=== PATIENT | male | born 1960 | race Caucasian/White ===

== ENCOUNTER 2020-03-30 20:16 | Emergency (ER) | payer BC, OTHER ==
[~2020-03-30] VITALS: Ht 182.9 cm; Wt 128.5 kg
[2020-03-30 21:59] LABS: BASO # 0.1 10^3/uL (0.0-0.2); BASO % 0.6 % (0.0-1.0); EOS # 0.2 10^3/uL (0.0-0.5); EOS % 2.1 % (0.0-3.0); HEMATOCRIT 44.9 % (42.0-52.0); HEMOGLOBIN 14.6 g/dl (13.5-17.5); LYMPH # 1.3 10^3/uL (1.5-5.0); LYMPH % 12.5 % (24.0-44.0); MEAN CORPUSCULAR HEMOGLOBIN 30.5 pg (27.0-33.0); MEAN CORPUSCULAR HGB CONC 32.5 g/dl (32.0-36.5); MEAN CORPUSCULAR VOLUME 93.7 fl (80.0-96.0); MONO # 0.9 10^3/uL (0.0-0.8); MONO % 8.3 % (0.0-5.0); NEUTROPHILS # 7.9 10^3/uL (1.5-8.5); NEUTROPHILS % 75.8 % (36.0-66.0); PLATELET COUNT, AUTOMATED 192 10^3/uL (150-450); RED BLOOD COUNT 4.79 10^6/uL (4.30-6.10); WHITE BLOOD COUNT 10.4 10^3/uL (4.0-10.0)
[2020-03-30 22:11] LABS: INR 1.06
[2020-03-30 22:18] LABS: HEMOGLOBIN A1c 6.5 %
[2020-03-30 22:22] LABS: ALBUMIN 3.3 GM/DL (3.2-5.2); ALT/SGPT 22 U/L (12-78); BILIRUBIN,DIRECT 0.1 MG/DL (0.0-0.2); BILIRUBIN,TOTAL 0.4 MG/DL (0.2-1.0); BLOOD UREA NITROGEN 24 MG/DL (7-18); CALCIUM LEVEL 8.4 MG/DL (8.8-10.2); CARBON DIOXIDE LEVEL 26 MEQ/L (21-32); CHLORIDE LEVEL 106 MEQ/L (98-107); CREATININE FOR GFR 1.07 MG/DL (0.70-1.30); GLOMERULAR FILTRATION RATE > 60.0 (>49); GLUCOSE, FASTING 94 MG/DL (70-100); LIPASE 80 U/L (73-393); POTASSIUM SERUM 4.1 MEQ/L (3.5-5.1); SODIUM LEVEL 140 MEQ/L (136-145); TOTAL PROTEIN 7.1 GM/DL (6.4-8.2)
[2020-03-30] MEDS ORDERED: KEFL500C17 PO (22:43)
[2020-03-30] MEDS ORDERED: CEPHALEXIN 500 MG CAP PO ONE (22:45)
--- NOTE | 2020-03-30 22:45 | REPVR ---
PROCEDURE INFORMATION: Exam: XR Chest, 2 Views Exam date and time: 03/30/2020 10:38 PM Age: 59 years old Clinical indication: Other: Abdominal pain TECHNIQUE: Imaging protocol: XR of the chest Views: 2 views. COMPARISON: No relevant prior studies available. FINDINGS: Tubes, catheters and devices: A surgical screw overlies the left shoulder. Lungs: Unremarkable. No consolidation. Pleural space: Unremarkable. No pleural effusion. No pneumothorax. Heart/Mediastinum: Unremarkable. No cardiomegaly. Bones/joints: Degenerative changes involve the spine. IMPRESSION: No evidence for acute pulmonary disease. Electronically signed by: Marcin Ryan On 03/30/2020 22:45:39 PM
[2020-03-30 23:09] VITALS: BP 138/71
--- NOTE | 2020-03-31 07:39 | ECGEPIP ---
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
== END 2020-03-30 23:11 | disposition home or self-care (01) ==
LOC: M ED 20:16
DX: I73.9 Peripheral vascular disease, unspecified (principal); L02.415 Cutaneous abscess of right lower limb; L02.416 Cutaneous abscess of left lower limb

== ENCOUNTER → 2020-06-06 | Outpatient (CLI) | payer OTHER ==
[~2020-06-06] MED LIST: KEFL500C17 PO
--- NOTE | 2020-06-06 14:14 | REP ---
INDICATION: ULCER RT LEG, VENOUS HTN. COMPARISON: None. TECHNIQUE: Right lower extremity duplex venous ultrasound and reflux evaluation. FINDINGS: The deep veins are anechoic and fully compressible from the groin to the distal femoral vein in the right lower extremity. There is a short segment of occlusive thrombosis in the popliteal vein however consistent with deep vein thrombosis. Reflux sonography: There is a collateral without reflux seen at the greater saphenous vein at the knee. No deep system or superficial system reflux was observed or elicited in the right lower extremity. The greater saphenous vein measures 6.1 mm in AP dimension proximally, 6.4 mm at mid thigh, and 3.9 mm at the knee. IMPRESSION: The study is positive for short segment of occlusive deep vein thrombosis in the popliteal vein on the right. No deep or superficial system reflux is observed.. <Electronically signed by Kwadwo Ocampo > 06/06/20 [id number]
--- NOTE | 2020-06-07 09:13 | REP ---
INDICATION: ULCER RT LEG, VENOUS HTN. COMPARISON: None TECHNIQUE: Real time prater scale and color Doppler evaluation of the left lower extremity arterial vasculature using linear high frequency transducer. FINDINGS: The ankle to brachial index could not be obtained. Color doppler interrogation demonstrates mild to moderate amounts of mixed partially calcified atheromatous plaquing most notably involving the popliteal artery. No focal areas of stenosis or occlusion are identified. Doppler interrogation demonstrates triphasic wave patterns from the common femoral artery to the proximal superficial femoral artery followed by monophasic wave patterns from the mid superficial femoral artery through the remainder of the lower extremity. PSV(cm/sec) Common femoral artery: 119.4 cm/s Profunda femoris artery: 83.5 cm/s Proximal superficial femoral artery: 84.2 cm/s Mid superficial femoral artery: 73.7 cm/s Distal superficial femoral artery: 70.1 cm/s Popliteal artery: 86.1 cm/s Proximal RITA: 60.5 cm/s Tibioperoneal trunk: 36.9 cm/s Proximal MANAGER CORPORATE RESPONSIBILITY: 65.2 cm/s Distal MANAGER CORPORATE RESPONSIBILITY: 20.2 cm/s Distal RITA: 38.2 cm/s IMPRESSION: Atheromatous plaquing without evidence for stenosis or occlusion. Primarily monophasic wave patterns noted. <Electronically signed by Bairon Staples > 06/07/20 [id number]
== END ==
LOC: M RAD 12:08
PROVIDERS: ATTEND Surgery
DX: I87.311 Chronic venous hypertension (idiopathic) with ulcer of right lower extremity (principal); L97.812 Non-pressure chronic ulcer of other part of right lower leg with fat layer exposed

== ENCOUNTER → 2020-06-07 | Outpatient (REF) | payer OTHER | LOC: M SFHCPLAZ 11:03 | PROVIDERS: ATTEND Family Medicine | DX: Z00.00 Encounter for general adult medical examination without abnormal findings (principal); R73.03 Prediabetes ==

== ENCOUNTER → 2020-08-02 | Outpatient (POV) | payer OTHER ==
--- NOTE | 2020-08-05 11:45 | IRCOV ---
[facility] IR Consult Office Visit IR Consult Office Visit DATE: Aug 02, 2020 Patient agreed to this telephone consultation. I spent 30 minutes reviewing patients records, imaging and talking to the patient. REASON FOR CONSULTATION/CHIEF COMPLAINT: Non healing right lower extremity wound. HISTORY OF PRESENT ILLNESS: 59 year old male reports a 2.5 cm ulceration on the last posterior right calf which is present for 5 months. This is associated with pain and limb swelling. He was recently diagnosed with right popliteal vein thrombus without iliofemoral extension. He denies increased swelling, pain or redness of the calf. He is on Eliquis. 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 He denies intermittent claudication, rest pain with limb elevation, skin color change, prior gangrene, amputations, chest pain, shortness of breath, orthopnea or PND. He reports wearing compression stocking, he is on his feet all day. No CAD, HTN, DC or CVE. ALLERGIES: Please see below. HOME MEDICATIONS: Please see below. PAST MEDICAL HISTORY: right pop DVT right pop arterial thrombosis PAST SURGICAL HISTORY: Popliteal artery thrombolysis FAMILY HISTORY: non contributory. SOCIAL HISTORY: non smoker. denies alcohol or drugs. REVIEW OF SYSTEMS: Otherwise. PHYSICAL EXAMINATION: no video on patient side. LABORATORY DATA: non recent. Imaging: I personally reviewed the arterial US and venous reflux study of the lower extremity, performed in June 2020. The right SFA is patent with areas of atherosclerosis without occlusion or significant stenosis. The popliteal artery is calcified but patent and AT And PT are patent to the foot. The right GSV fails to show reflux. There is a right popliteal DVT without ileo femoral extension. ASSESSMENT/PLAN: 59 year old male with history of arterial and venous disease of the right lower extremity presents with non healing venous ulcer. He does not report any symptoms indicating arterial ischemia. I would like to follow him up in 3 months with US to evaluate for worsening post thrombotic syndrome and bill ssess for GSV reflux. Thank you for this referral. cc Kaylin DUEÑAS V Allergies Coded Allergies: No Known Allergies (Unverified , 03/30/20) Home Medications Scheduled Cephalexin (Keflex), 500 MG PO Q6H JAMES MCCARTHY MD Aug 05, 2020 11:45
== END ==
LOC: M TMIRPOV 13:17
PROVIDERS: ATTEND Radiology Diagnostic Radiology
DX: I87.2 Venous insufficiency (chronic) (peripheral) (principal); I82.431 Acute embolism and thrombosis of right popliteal vein; L97.229 Non-pressure chronic ulcer of left calf with unspecified severity

== ENCOUNTER → 2020-08-04 | Outpatient (REF) | payer OTHER | LOC: M LAB REF 11:03 | PROVIDERS: ATTEND Physician Assistant | DX: C44.320 Squamous cell carcinoma of skin of unspecified parts of face (principal) ==

== ENCOUNTER → 2020-09-16 | Outpatient (CLI) | payer OTHER ==
[~2020-09-16] MED LIST changes: +ELIQ5TAB PO
== END ==
LOC: M LABSMTC 14:29
PROVIDERS: ATTEND Anesthesiology
DX: Z01.812 Encounter for preprocedural laboratory examination (principal); Z20.822 Contact with and (suspected) exposure to COVID-19

== ENCOUNTER 2020-09-21 07:23 | Day surgery (SDC) | payer OTHER ==
[~2020-09-21] VITALS: Ht 182.9 cm; Wt 125.6 kg
[~2020-09-21 07:23] MED LIST changes: +NS 1,000 ML IV ONE
[2020-09-21] MEDS ORDERED: LIDOCAINE 2% 100MG/5ML SDV (FOR ANES.) As Ordered ONE (09:02)
[2020-09-21] MEDS ORDERED: propofoL 200 MG/20 ML VIAL As Ordered ONE ×3 (09:02→09:29)
--- NOTE | 2020-09-21 09:52 | ROOR ---
Patient Name: Andrew Harmon Procedure Date: 09/21/2020 9:10 AM Date of : 1960 Age: 59 Room: [facility] Gender: Male Note Status: Finalized Procedure: Colonoscopy Indications: Screening for colorectal malignant neoplasm Providers: Camahco Stoddard MD Referring MD: Orlando Rivera MD Requesting Provider: Medicines: Monitored Anesthesia Care Complications: No immediate complications. Procedure: Pre-Anesthesia Assessment: - Prior to the procedure, a History and Physical was performed, and patient medications and allergies were reviewed. The patient is competent. The risks and benefits of the procedure and the sedation options and risks were discussed with the patient. All questions were answered and informed consent was obtained. Patient identification and proposed procedure were verified by the physician, the nurse and the anesthesiologist in the procedure room. Mental Status Examination: alert and oriented. Airway Examination: normal oropharyngeal airway and neck mobility. Respiratory Examination: clear to auscultation. CV Examination: normal. Prophylactic Antibiotics: The patient does not require prophylactic antibiotics. Prior Anticoagulants: The patient has taken Eliquis (apixaban), last dose was 3 days prior to procedure. ASA Grade Assessment: III - A patient with severe systemic disease. After reviewing the risks and benefits, the patient was deemed in satisfactory condition to undergo the procedure. The anesthesia plan was to use monitored anesthesia care (MAC). Immediately prior to administration of medications, the patient was re-assessed for adequacy to receive sedatives. The heart rate, respiratory rate, oxygen saturations, blood pressure, adequacy of pulmonary ventilation, and response to care were monitored throughout the procedure. The physical status of the patient was re-assessed after the procedure. The Colonoscope was introduced through the anus and advanced to the cecum, identified by appendiceal orifice and ileocecal valve. The colonoscopy was performed with difficulty due to the patient's body habitus and the patient's discomfort during the procedure, unable to fully insufflate at the sigmoid, unable to hold air at sigmoid and rectum, coughing, abdominal breathing towards middle and end of the procedure. [Solution]. The quality of the bowel preparation was good. Findings: The perianal and digital rectal examinations were normal. A 4 mm polyp was found in the sigmoid colon. The polyp was sessile. The polyp was removed with a cold snare. Resection and retrieval were complete. Estimated blood loss was minimal. A 7 mm polyp was found in the rectum. The polyp was sessile. The polyp was removed with a cold snare. Resection and retrieval were complete. Estimated blood loss was minimal. The retroflexed view of the distal rectum and anal verge was normal and showed no anal or rectal abnormalities. Impression: - One 4 mm polyp in the sigmoid colon, removed with a cold snare. Resected and retrieved. - One 7 mm polyp in the rectum, removed with a cold snare. Resected and retrieved. - The distal rectum and anal verge are normal on retroflexion view. Recommendation: - Discharge patient to home (ambulatory). - Resume Eliquis (apixaban) at prior dose tomorrow. Refer to primary physician for further adjustment of therapy. - Repeat colonoscopy in 5 years for surveillance based on pathology results. Procedure Code(s): --- Professional --- 82848, Colonoscopy, flexible; with removal of tumor(s), polyp(s), or other lesion(s) by snare technique Diagnosis Code(s): --- Professional --- Z12.11, Encounter for screening for malignant neoplasm of colon K63.5, Polyp of colon K62.1, Rectal polyp CPT copyright 2019 [employer]. All rights reserved. The codes documented in this report are preliminary and upon tree worker review may be revised to meet current compliance requirements. Camacho Stoddard MD Camacho Stoddard MD 09/21/2020 9:52:05 AM Electronically signed by Camacho Stoddard MD Number of Addenda: 0 Note Initiated On: 09/21/2020 9:10 AM Estimated Blood Loss: Estimated blood loss: none.
[2020-09-21 10:16] VITALS: BP 98/55
== END 2020-09-21 10:17 | disposition home or self-care (01) ==
LOC: M OPP 07:23
PROVIDERS: ATTEND Surgery
DX: Z12.11 Encounter for screening for malignant neoplasm of colon (principal); K63.5 Polyp of colon; K62.1 Rectal polyp; Z86.718 Personal history of other venous thrombosis and embolism; Z79.899 Other long term (current) drug therapy

== ENCOUNTER → 2020-09-22 | Outpatient (CLI) | payer OTHER ==
[~2020-09-22] MED LIST changes: -NS 1,000 ML IV ONE
== END ==
LOC: M LABSMTC 11:32
PROVIDERS: ATTEND Anesthesiology
DX: Z01.812 Encounter for preprocedural laboratory examination (principal); Z20.822 Contact with and (suspected) exposure to COVID-19

== ENCOUNTER → 2020-10-07 | Outpatient (CLI) | payer OTHER ==
--- NOTE | 2020-10-07 15:44 | REPPI ---
INDICATION: Z01.818 PRE OP COMPARISON: 03/30/2020 TECHNIQUE: PA and lateral. FINDINGS: The mediastinum and cardiac silhouette are normal. The lung win demonstrate stable chronic changes without acute consolidation, effusion, or pneumothorax. The skeletal structures are intact and normal. IMPRESSION: No acute cardiopulmonary process. <Electronically signed by Bairon Staples > 10/07/20 [id number]
== END ==
LOC: M PLAIMG 15:25
PROVIDERS: ATTEND Student in an Organized Health Care Education/Training Program
DX: Z01.818 Encounter for other preprocedural examination (principal)

== ENCOUNTER → 2020-10-07 | Outpatient (REF) | payer OTHER ==
[2020-10-07 17:09] LABS: BASO # 0.1 10^3/uL (0.0-0.2); BASO % 0.9 % (0.0-1.0); EOS # 0.2 10^3/uL (0.0-0.5); EOS % 2.7 % (0.0-3.0); HEMATOCRIT 44.9 % (42.0-52.0); HEMOGLOBIN 14.2 g/dl (13.5-17.5); LYMPH # 1.5 10^3/uL (1.5-5.0); LYMPH % 19.9 % (24.0-44.0); MEAN CORPUSCULAR HEMOGLOBIN 29.8 pg (27.0-33.0); MEAN CORPUSCULAR HGB CONC 31.6 g/dl (32.0-36.5); MEAN CORPUSCULAR VOLUME 94.1 fl (80.0-96.0); MONO # 0.8 10^3/uL (0.0-0.8); MONO % 10.1 % (2.0-8.0); NEUTROPHILS # 5.1 10^3/uL (1.5-8.5); NEUTROPHILS % 65.4 % (36.0-66.0); PLATELET COUNT, AUTOMATED 244 10^3/uL (150-450); RED BLOOD COUNT 4.77 10^6/uL (4.30-6.10); WHITE BLOOD COUNT 7.7 10^3/uL (4.0-10.0)
[2020-10-07 17:13] LABS: HEMOGLOBIN A1c 6.7 %
[2020-10-07 17:16] LABS: PROTHROMBIN TIME 13.4 SECONDS (12.5-14.3)
[2020-10-07 17:17] LABS: PARTIAL THROMBOPLASTIN TIME 30.5 SECONDS (24.2-38.5)
[2020-10-07 17:23] LABS: BLOOD UREA NITROGEN 25 MG/DL (7-18); CALCIUM LEVEL 8.8 MG/DL (8.8-10.2); CARBON DIOXIDE LEVEL 26 MEQ/L (21-32); CHLORIDE LEVEL 108 MEQ/L (98-107); CHOLESTEROL LEVEL 174 MG/DL (<200); CHOLESTEROL RISK RATIO 4.578 (<5); CREATININE FOR GFR 0.89 MG/DL (0.70-1.30); GLOMERULAR FILTRATION RATE > 60.0 (>49); GLUCOSE, FASTING 99 MG/DL (70-100); HDL CHOLESTEROL 38 MG/DL (>40); LDL CHOLESTEROL 108 MG/DL (<100); NON-HDL-C 136 MG/DL; POTASSIUM SERUM 4.1 MEQ/L (3.5-5.1); SODIUM LEVEL 139 MEQ/L (136-145); TRIGLYCERIDES LEVEL 139 MG/DL (<150)
== END ==
LOC: M SFHCPLAZ 15:17
DX: Z01.812 Encounter for preprocedural laboratory examination (principal)

== ENCOUNTER → 2020-10-27 | Outpatient (CLI) | payer OTHER ==
--- NOTE | 2020-10-27 15:39 | REP ---
INDICATION: DVT, VENOUS HTN COMPARISON: None. TECHNIQUE: Real time compression and duplex Doppler interrogation of the right lower extremity deep venous system is performed. Evaluation for venous reflux is performed. FINDINGS: The right common femoral, superficial femoral and popliteal veins are fully compressible with transducer pressure and demonstrate normal spontaneous and phasic flow, without evidence of deep venous thrombosis.The peroneal and posterior tibial veins are not visualized due to soft tissue edema and body habitus. There is reflux in the right common femoral vein with the bed tipped as well as in the standing position. There is no evidence of an anterior accessory greater saphenous vein. There is reflux in the popliteal vein only in the standing position. There is no reflux in the greater saphenous vein at the saphenofemoral junction which measures 8 mm. There is reflux in the greater saphenous vein at the midthigh level read right felix of 7 seconds and also at the level of the knee with duration of 7 seconds, diameter of both is 7 mm. There is minimal reflux in the lesser saphenous vein only with the bed tipped, diameter is 5 mm. IMPRESSION: No evidence of deep venous thrombosis of the right lower extremity femoral popliteal venous system. Venous reflux as discussed above. <Electronically signed by Giovanny Centeno > 10/27/20 [id number]
== END ==
LOC: M RAD 14:07
PROVIDERS: ATTEND Radiology Diagnostic Radiology
DX: I87.309 Chronic venous hypertension (idiopathic) without complications of unspecified lower extremity (principal)

== ENCOUNTER 2020-11-23 15:22 | Emergency (ER) | payer OTHER ==
[~2020-11-23] VITALS: Ht 182.9 cm; Wt 127.4 kg
[2020-11-23] MEDS ORDERED: METF500T13 (15:38)
--- NOTE | 2020-11-23 17:30 | REP ---
INDICATION: RLE pain r/o DVT. COMPARISON: None. TECHNIQUE: Right {lower extremity duplex venous scanning is performed from the groin to the ankle level. FINDINGS: The deep veins are anechoic and fully compressible from the groin to the popliteal fossa in the right lower extremity. Color flow imaging is homogeneous. Spectral Doppler interrogation demonstrates intact respiratory variation in flow and normal manual augmentation of flow. There is no evidence of deep vein thrombosis above the knee. Right lower extremity calf veins could not be seen due to bandages.. Doppler interrogation of the contralateral common femoral vein shows normal symmetric respiratory phasicity. IMPRESSION: No evidence of DVT in the right lower extremity femoropopliteal veins. <Electronically signed by Kwadwo Ocampo > 11/23/20 [id number]
[2020-11-23 17:39] LABS: BASO % 0.3 % (0.0-1.0); EOS # 0.1 10^3/uL (0.0-0.5); EOS % 0.9 % (0.0-3.0); HEMATOCRIT 42.2 % (42.0-52.0); HEMOGLOBIN 13.6 g/dl (13.5-17.5); LYMPH # 0.9 10^3/uL (1.5-5.0); LYMPH % 8.5 % (24.0-44.0); MEAN CORPUSCULAR HEMOGLOBIN 29.6 pg (27.0-33.0); MEAN CORPUSCULAR HGB CONC 32.2 g/dl (32.0-36.5); MEAN CORPUSCULAR VOLUME 91.9 fl (80.0-96.0); MONO # 0.6 10^3/uL (0.0-0.8); MONO % 5.5 % (2.0-8.0); NEUTROPHILS # 8.9 10^3/uL (1.5-8.5); NEUTROPHILS % 84.1 % (36.0-66.0); PLATELET COUNT, AUTOMATED 233 10^3/uL (150-450); RED BLOOD COUNT 4.59 10^6/uL (4.30-6.10); WHITE BLOOD COUNT 10.6 10^3/uL (4.0-10.0)
[2020-11-23 17:53] LABS: BLOOD UREA NITROGEN 19 MG/DL (7-18); CARBON DIOXIDE LEVEL 30 MEQ/L (21-32); CHLORIDE LEVEL 106 MEQ/L (98-107); CREATININE FOR GFR 1.06 MG/DL (0.70-1.30); GLOMERULAR FILTRATION RATE > 60.0 (>49); GLUCOSE, FASTING 137 MG/DL (70-100); POTASSIUM SERUM 4.2 MEQ/L (3.5-5.1); SODIUM LEVEL 140 MEQ/L (136-145)
[2020-11-23 17:54] LABS: CALCIUM LEVEL 8.3 MG/DL (8.8-10.2)
[2020-11-23 18:16] LABS: ERYTHROCYTE SEDIMENTATION RATE 69 mm/hr (0-20)
[2020-11-23] MEDS ORDERED: BACT800T5 PO (18:21)
[2020-11-23] MEDS ORDERED: CEPH500C PO (18:21)
[2020-11-23 18:34] VITALS: BP 136/72
== END 2020-11-23 18:36 | disposition home or self-care (01) ==
LOC: M ED 15:22
DX: L03.115 Cellulitis of right lower limb (principal); I73.9 Peripheral vascular disease, unspecified; E11.9 Type 2 diabetes mellitus without complications; Z79.01 Long term (current) use of anticoagulants

== ENCOUNTER → 2020-12-15 | Outpatient (CLI) | payer OTHER ==
[~2020-12-15] MED LIST changes: +BACT800T5 PO; +CEPH500C PO; +LIDOCAINE 1% MDV 20ML VIAL As Ordered ONE; +LIDOCAINE 2% MDV 20ML VIAL As Ordered ONE; +METF500T13 PO; +MIDAZOLAM INJ 2MG/2ML VIAL (J2250 PER 1MG) As Ordered ONE; +NS 1,000 ML IV SCH; +PERCOCET 5MG/325MG TAB PO PRN; +PROMETHAZINE INJ 25 MG/ML VIAL (J2550) As Ordered ONE; +diphenhydrAMINE 50MG/ML VIAL (J1200) As Ordered ONE; +fentaNYL 100 MCG/2 ML INJECTION (J3010) As Ordered ONE
--- NOTE | 2020-12-15 08:32 | IRHP ---
[facility] IR Pre-Procedure H & P General Date of Service: Dec 15, 2020 Procedure: Same Day Surgery Interval History and Physical I have seen the patient and reviewed last H & P performed within 30 days. There is no significant interval change. History of Present Illness Chief Complaint The patient is a 60-year-old male admitted with a reason for visit of Varicose Veins. PRE-PROCEDURE DIAGNOSIS: Varicose veins HEART: Normal rate. LUNGS: Normal breathing at rest. ASA Classification ASA Classification: III-Severe systemic dis. Mallampati Score: II NPO: Yes Problems with prior sedation: No Obstructive Sleep Apnea: No Plan moderate sedation Allergies Coded Allergies: No Known Allergies (Unverified , 09/20/20) Home Medications Scheduled Apixaban (Eliquis), 5 MG PO BID, (Reported) Metformin HCl (Metformin HCl), 500 PO BID, (Reported) Discontinued Medications Cephalexin (Cephalexin), 500 MG PO QID Discontinued Reason: PCP discontinued med Sulfamethoxazole/Trimethoprim (Bactrim Ds Tablet), 1 TAB PO Q12H Discontinued Reason: PCP discontinued med VS, I&O, 24H, Chato Vital Signs/I&O Vital Signs Date Time Temp Pulse Resp B/P (MAP) Pulse Ox O2 Delivery O2 Flow Rate FiO2 12/15/20 07:35 98.0 80 20 97 Room Air JAMES MCCARTHY MD Dec 15, 2020 08:32
[2020-12-15 10:45] VITALS: BP 112/58
--- NOTE | 2020-12-19 12:15 | IRPON ---
IR Postoperative Note Date Of Procedure: Dec 15, 2020 Time Of Procedure: 16:00 IR Postoperative Note IR Endovenous laser treatment for right leg varicose vein. IR Ultrasound of the right leg. IR Tumescent anesthesia under ultrasound guidance. IR Moderate sedation. Clinical information: Right lower extremely nonhealing venous ulcers. Greater saphenous vein reflux greater than 0.5 seconds. Physician: Dr. Paul. Procedure: The patient was advised of the benefits, risks and alternatives of the procedure and informed consent was obtained. The time-out was performed with verification of the patient's name, MRN, site of procedure and type of procedure to be performed. The patient was positioned in the supine position on the table. The site was prepped and draped in the usual sterile fashion. Moderate sedation was performed by the physician including the presence of an independent trained RN who assisted in monitoring the patient's level of consciousness and physiologic status. Following the administration of fentanyl and Versed , the physician spent 90 minutes of continuous face to face time with the patient. Ultrasound of the right lower extremity demonstrates dilated right greater saphenous vein with greater than 0.5 seconds reflux. The access site was identified with ultrasound and anesthetized with lidocaine. The right greater saphenous vein was accessed under ultrasound guidance at the knee, using a micro introducer needle. An 018 cope wire was advanced into the vein. Incision at the access site was made using a scalpel. The needle was removed and an access catheter was advanced over the wire under ultrasound guidance to > 2.5 centimeters from the saphenofemoral junction. The wire was removed and the laser fiber was advanced through the catheter under ultrasound guidance and positioned with the tip located 2.5 cm from the saphenous femoral junction. Tumescent anesthesia was then injected under ultrasound guidance along the entire length of the vein to be treated. Repeat ultrasound of the saphenofemoral junction was used to confirm positioning of the tip of the laser back 2.5 cm from junction. The patient was positioned in Trendelenburg. The laser was then activated and under ultrasound guidance used to laser the Right greater saphenous vein back to the access point. Simultaneous manual compression was applied to the treated vein. Treatment: Wattage: 7. Time: 157 seconds. Pullback rate 1 cm every 7 seconds. Total Energy deposited 1100 joules. Treatment 50 joules per centimeter of vein. The fiber, catheter and sheath were removed, pressure held and hemostasis achieved. A sterile dressing was applied to the site. Compression dressing was then applied to the leg, from ankle to groin. The patient tolerated the procedure well and was returned to the PRU in stable condition. EBL: < 5 ml. Complications: None. Impression: 1. Ultrasound demonstrates dilated right greater saphenous vein with greater than 0.5 seconds reflux. 2. Successful right greater saphenous vein ablation with laser. 3. Compression dressing applied from ankle to groin. Patient to return in 1 week for follow up ultrasound at which time the compression dressing will be switched to stockings. Thank you this referral. Cc JAMES Madden MD Dec 19, 2020 12:14
== END ==
LOC: M IRPRO 07:22
PROVIDERS: ATTEND Radiology Diagnostic Radiology
DX: I83.019 Varicose veins of right lower extremity with ulcer of unspecified site (principal); I87.2 Venous insufficiency (chronic) (peripheral)
CPT/HCPCS: 36478; 76940; 99152; 99153; J1200; J2250; J3010

== ENCOUNTER → 2020-12-22 | Outpatient (CLI) | payer OTHER ==
[~2020-12-22] MED LIST changes: -LIDOCAINE 1% MDV 20ML VIAL As Ordered ONE; -LIDOCAINE 2% MDV 20ML VIAL As Ordered ONE; -MIDAZOLAM INJ 2MG/2ML VIAL (J2250 PER 1MG) As Ordered ONE; -NS 1,000 ML IV SCH; -PERCOCET 5MG/325MG TAB PO PRN; -PROMETHAZINE INJ 25 MG/ML VIAL (J2550) As Ordered ONE; -diphenhydrAMINE 50MG/ML VIAL (J1200) As Ordered ONE; -fentaNYL 100 MCG/2 ML INJECTION (J3010) As Ordered ONE
--- NOTE | 2020-12-22 10:30 | REP ---
INDICATION: S/P EVLT RT, R/O DVT COMPARISON: None. TECHNIQUE: Centeno scale and color Doppler evaluation using linear high frequency transducer. FINDINGS: Ultrasound examination of the right lower extremity deep venous structures from the common femoral vein through the calf/ankle to include the peroneal, and tibial veins demonstrates normal compressibility flow and wave patterns in response to respiration and augmentation. There is no evidence for deep venous thrombosis. Patient is noted to be status post EVLT with thrombus of the greater saphenous vein beginning approximately 1.5 cm from the junction with the common femoral vein and extending distally to the anterior accessory greater saphenous vein. IMPRESSION: No evidence for deep venous thrombosis. <Electronically signed by Bairon Staples > 12/22/20 1020
== END ==
LOC: M RAD 09:41
PROVIDERS: ATTEND Radiology Diagnostic Radiology
DX: I83.90 Asymptomatic varicose veins of unspecified lower extremity (principal); Z86.718 Personal history of other venous thrombosis and embolism

== ENCOUNTER → 2021-01-10 | Outpatient (POV) | payer OTHER ==
[~2021-01-10] VITALS: Ht 182.9 cm; Wt 127.2 kg
[2021-01-10 16:20] VITALS: BP 156/79
--- NOTE | 2021-01-13 12:21 | IRPN ---
[facility] IR Progress Note IR Progress Note DATE: Jan 10, 2021 FOLLOW-UP: Patient is status post right lower extremity EVLT for venous hypertension and nonhealing venous ulcer. Patient reports he is doing great. The bruising has resolved. He denies any right lower extremity pain. He states he is walking and moving around much better without pain or discomfort. He feels the swelling is improved. ON EXAMINATION: Right lower extremity in compression. Right calf nontender. I personally reviewed the follow-up right lower extremity venous ultrasound, performed one week post EVLT. Good treatment response with GSV ablation. No deep vein thrombosis. IMPRESSION: Doing well status post right lower extremity EVLT. No further follow-up scheduled unless initiated by patient and/or referring provider. Continue wound care. Thank you for this referral. Cc Kaylin Gutierrez Allergies Coded Allergies: No Known Allergies (Unverified , 09/20/20) VS,Fishbone, I+O VS, Fishbone, I+O Vital Signs Date Time Temp Pulse Resp B/P (MAP) Pulse Ox O2 Delivery O2 Flow Rate FiO2 01/10/21 16:20 98.4 91 20 156/79 (104) 96 Room Air JAMES MCCARTHY MD Jan 13, 2021 12:21
== END ==
LOC: M IRPOV 16:18
PROVIDERS: ATTEND Radiology Diagnostic Radiology
DX: Z48.812 Encounter for surgical aftercare following surgery on the circulatory system (principal)

== ENCOUNTER → 2021-01-12 | Outpatient (REF) | payer OTHER | LOC: M LAB REF 19:16 | PROVIDERS: ATTEND Dermatology | DX: D48.9 Neoplasm of uncertain behavior, unspecified (principal) ==

== ENCOUNTER → 2021-11-30 | Outpatient (CLI) | payer OTHER | LOC: M RAD 09:03 | PROVIDERS: ATTEND Surgery | DX: L97.812 Non-pressure chronic ulcer of other part of right lower leg with fat layer exposed (principal) ==

== ENCOUNTER → 2022-01-07 | Outpatient (CLI) | payer OTHER | LOC: M LABSMTC 11:16 | PROVIDERS: ATTEND Anesthesiology | DX: Z01.812 Encounter for preprocedural laboratory examination (principal); Z20.822 Contact with and (suspected) exposure to COVID-19 ==

== ENCOUNTER → 2022-01-16 | Outpatient (CLI) | payer OTHER | LOC: M LABSMTC 09:24 | PROVIDERS: ATTEND Anesthesiology | DX: Z01.812 Encounter for preprocedural laboratory examination (principal); Z20.822 Contact with and (suspected) exposure to COVID-19 ==

== ENCOUNTER → 2022-01-18 | Outpatient (CLI) | payer OTHER ==
[~2022-01-18] MED LIST changes: +ISOVUE-300 61% 50ML VIAL As Ordered ONE; +LIDOCAINE 1% MDV 20ML VIAL As Ordered ONE; +MIDAZOLAM INJ 2MG/2ML VIAL (J2250 PER 1MG) As Ordered ONE; +NS 1,000 ML IV SCH; +diphenhydrAMINE 50MG/ML VIAL (J1200) As Ordered ONE; +fentaNYL 100 MCG/2 ML INJECTION As Ordered ONE
[2022-01-18 09:18] LABS: HEMATOCRIT 41.1 % (42.0-52.0); HEMOGLOBIN 13.2 g/dl (13.5-17.5); MEAN CORPUSCULAR HEMOGLOBIN 29.7 pg (27.0-33.0); MEAN CORPUSCULAR HGB CONC 32.1 g/dl (32.0-36.5); MEAN CORPUSCULAR VOLUME 92.4 fl (80.0-96.0); PLATELET COUNT, AUTOMATED 242 10^3/uL (150-450); RED BLOOD COUNT 4.45 10^6/uL (4.30-6.10); WHITE BLOOD COUNT 8.4 10^3/uL (4.0-10.0)
[2022-01-18 09:47] LABS: BLOOD UREA NITROGEN 24 MG/DL (7-18); CALCIUM LEVEL 8.8 MG/DL (8.8-10.2); CARBON DIOXIDE LEVEL 29 MEQ/L (21-32); CHLORIDE LEVEL 105 MEQ/L (98-107); CREATININE FOR GFR 1.04 MG/DL (0.70-1.30); GLOMERULAR FILTRATION RATE > 60.0 (>49); GLUCOSE, FASTING 186 MG/DL (70-100); POTASSIUM SERUM 4.8 MEQ/L (3.5-5.1); SODIUM LEVEL 137 MEQ/L (136-145)
[2022-01-18 16:30] VITALS: BP 148/71
== END ==
LOC: M IRPRO 08:35
PROVIDERS: ATTEND Radiology Diagnostic Radiology
DX: I70.239 Atherosclerosis of native arteries of right leg with ulceration of unspecified site (principal); I70.92 Chronic total occlusion of artery of the extremities
CPT/HCPCS: 36247; 75630; 75774; 80048; 85027; 99152; 99153; C1769; C1887; C1894; J1200; J1644; J2250; J3010; Q9967

== ENCOUNTER → 2022-01-23 | Outpatient (POV) | payer OTHER ==
[~2022-01-23] VITALS: Ht 182.9 cm; Wt 122.7 kg
[~2022-01-23] MED LIST changes: -ISOVUE-300 61% 50ML VIAL As Ordered ONE; -LIDOCAINE 1% MDV 20ML VIAL As Ordered ONE; -MIDAZOLAM INJ 2MG/2ML VIAL (J2250 PER 1MG) As Ordered ONE; -NS 1,000 ML IV SCH; -diphenhydrAMINE 50MG/ML VIAL (J1200) As Ordered ONE; -fentaNYL 100 MCG/2 ML INJECTION As Ordered ONE
[2022-01-23 14:00] VITALS: BP 132/76
== END ==
LOC: M IRPOV 13:37
PROVIDERS: ATTEND Radiology Diagnostic Radiology
DX: Z48.812 Encounter for surgical aftercare following surgery on the circulatory system (principal); I70.92 Chronic total occlusion of artery of the extremities

== ENCOUNTER → 2022-02-09 | Outpatient (REF) | payer OTHER ==
[2022-02-09 16:18] LABS: HEMOGLOBIN A1c 9.3 %
== END ==
LOC: M SFHCWOUN 12:31
PROVIDERS: ATTEND Physician Assistant
DX: I87.311 Chronic venous hypertension (idiopathic) with ulcer of right lower extremity (principal)

== ENCOUNTER 2024-01-27 17:46 | Inpatient (IN) | payer BC, MEDICARE ==
[~2024-01-27] VITALS: Ht 180.3 cm; Wt 122.2 kg
[2024-01-27 18:05] LABS: ABG BASE EXCESS -12.5 (-2.0-2.0); ABG HCO3 17.1 MMOL/L (22.0-26.0); ABG O2 SATURATION 98.7 % (95.0-99.0); ABG PARTIAL PRESSURE CO2 53.3 mmHg (35.0-45.0); ABG PARTIAL PRESSURE O2 157.8 mmHg (75.0-100.0); ABG TOTAL CO2 18.8 MMOL/L (23.0-31.0)
[2024-01-27 18:06] LABS: ABG pH (ARTERIAL) 7.125 UNITS (7.350-7.450)
[2024-01-27] MEDS ORDERED: ISOVUE-370 76% 100ML VIAL As Ordered ONE (18:15)
[2024-01-27] MEDS: methylPREDNISolone 125MG 2ML VIAL IV ONE (18:30)
[2024-01-27 18:33] LABS: BASO % 0.5 % (0.0-1.0); EOS # 0.1 10^3/uL (0.0-0.5); EOS % 1.2 % (0.0-3.0); HEMATOCRIT 46.1 % (42.0-52.0); HEMOGLOBIN 15.1 g/dl (13.5-17.5); LYMPH # 2.2 10^3/uL (1.5-5.0); MEAN CORPUSCULAR HEMOGLOBIN 31.2 pg (27.0-33.0); MEAN CORPUSCULAR HGB CONC 32.8 g/dl (32.0-36.5); MEAN CORPUSCULAR VOLUME 95.2 fl (80.0-96.0); MONO # 0.5 10^3/uL (0.0-0.8); MONO % 8.1 % (2.0-8.0); PLATELET COUNT, AUTOMATED 142 10^3/uL (150-450); RED BLOOD COUNT 4.84 10^6/uL (4.30-6.10); WHITE BLOOD COUNT 5.8 10^3/uL (4.0-10.0)
[2024-01-27 18:51] LABS: CPK CREATINE PHOSPHOKINASE 80 U/L (46-171)
[2024-01-27 18:52] LABS: ALKALINE PHOSPHATASE 82 U/L (46-116); ALT/SGPT 40 U/L (7.0-40); AST/SGOT 26 U/L (<34); BILIRUBIN,DIRECT 0.1 MG/DL (<0.4); BILIRUBIN,TOTAL 0.3 MG/DL (0.3-1.2); BLOOD UREA NITROGEN 19 MG/DL (9-23); CARBON DIOXIDE LEVEL 23 MMOL/L (20-31); CHLORIDE LEVEL 103 MMOL/L (98-107); CK-MB VALUE MASS < 1.0 NG/ML (<3.6); GLOMERULAR FILTRATION RATE > 60.0 (>49); GLUCOSE, FASTING 312 MG/DL (74-106); MB/CK RELATIVE INDEX 1.25 (< OR =4); POTASSIUM SERUM 3.3 MMOL/L (3.5-5.1); SODIUM LEVEL 138 MMOL/L (136-145); TOTAL PROTEIN 7.4 G/DL (5.7-8.2)
[2024-01-27 18:53] LABS: THYROID STIMULATING HORMONE 4.155 uIU/ML (0.55-4.78)
[2024-01-27 18:54] LABS: THYROXINE (T4) 8.3 UG/DL (4.5-10.9)
[2024-01-27 18:59] LABS: INR 1.06; PARTIAL THROMBOPLASTIN TIME 25.8 SECONDS (24.8-34.2); PROTHROMBIN TIME 13.5 SECONDS (12.5-14.5)
[2024-01-27] MEDS: NS 1,000 ML IV ONE (19:35)
[2024-01-27 19:37] LABS: ABG BASE EXCESS 1.1 (-2.0-2.0); ABG HCO3 26.8 MMOL/L (22.0-26.0); ABG PARTIAL PRESSURE CO2 46.2 mmHg (35.0-45.0); ABG STANDARD HCO3 25.3 MMOL/L. (22.0-26.0); ABG TOTAL CO2 28.2 MMOL/L (23.0-31.0); ABG pH (ARTERIAL) 7.381 UNITS (7.350-7.450)
[2024-01-27] MEDS ORDERED: NS 1,000 ML IV SCH (19:45)
[2024-01-27] MEDS: NS 500 ML IV ONE (19:45)
[2024-01-27 19:59] LABS: CK-MB VALUE MASS 2.1 NG/ML (<3.6)
[2024-01-27 20:07] LABS: MB/CK RELATIVE INDEX 2.18 (< OR =4)
[2024-01-27] MEDS ORDERED: HOME MED LIST COMPLETE! XX SCH (20:50)
[2024-01-27] MEDS: cefTRIAXone SOD 2 GM in D5W MINI-BAG PLUS 50 ML IV ONE (21:10)
[2024-01-27 21:36] LABS: PROCALCITONIN 0.13 ng/ml
[2024-01-27 22:07] LABS: CK-MB VALUE MASS 3.4 NG/ML (<3.6)
[2024-01-27 22:09] LABS: MB/CK RELATIVE INDEX 3.33 (< OR =4)
[2024-01-27] MEDS ORDERED: ACETAMINOPHEN TAB 650MG DOSE (2X325MG) PO PRN (23:20)
[2024-01-27] MEDS ORDERED: ALBUTEROL SULFATE 2.5MG/0.5ML INH NEB SOLN NEB PRN (23:25)
[2024-01-27] MEDS ORDERED: GLUCAGON INJ 1MG VIAL SC PRN (23:25)
[2024-01-27] MEDS ORDERED: GLUCOSE 4 GM CHEW PO PRN (23:25)
[2024-01-27] MEDS ORDERED: DEXTROSE 50% 50ML SYRINGE IV PRN (23:25)
[2024-01-28] VITALS (19 sets, daily range): BP systolic 117–148; BP diastolic 56–93; TEMP 97.5–98.2; O2SAT 70–100
[2024-01-28] MEDS: AZITHROMYCIN INJ 500 MG, VIAL MATE ADAPTER 1 EACH in NS 250 ML IV SCH (00:46)
[2024-01-28] MEDS: ENOXAPARIN 40MG/0.4ML SYRINGE (J1650 PER 10MG) SC SCH (00:46)
[2024-01-28] MEDS: ASPIRIN 325 MG TAB PO ONE (00:47)
[2024-01-28] MEDS: POTASSIUM CHLORIDE 10MEQ SR TABLET PO ONE (00:47)
[2024-01-28] MEDS: INSULIN LISPRO (NovoLOG) PER UNIT SC SCH (00:48)
[2024-01-28] MEDS: NS 2,170 ML in IV 1 EA IV ONE (00:48)
[2024-01-28] MEDS: IPRATROPIUM 0.5MG/ALBUTEROL 2.5MG INH SOL UD 3ML (DUONEB) NEB SCH (01:40)
[2024-01-28 01:43] LABS: MAGNESIUM LEVEL 1.8 MG/DL (1.8-2.4)
[2024-01-28] MEDS: methylPREDNISolone 40MG 1ML VIAL IV SCH (02:50)
[2024-01-28 07:26] LABS: HEMATOCRIT 41.1 % (42.0-52.0); HEMOGLOBIN 13.8 g/dl (13.5-17.5); MEAN CORPUSCULAR HEMOGLOBIN 31.5 pg (27.0-33.0); MEAN CORPUSCULAR HGB CONC 33.6 g/dl (32.0-36.5); MEAN CORPUSCULAR VOLUME 93.8 fl (80.0-96.0); PLATELET COUNT, AUTOMATED 125 10^3/uL (150-450); RED BLOOD COUNT 4.38 10^6/uL (4.30-6.10); WHITE BLOOD COUNT 4.6 10^3/uL (4.0-10.0)
[2024-01-28 08:07] LABS: PROCALCITONIN 0.61 ng/ml
[2024-01-28 08:12] LABS: ALBUMIN 2.8 G/DL (3.2-5.2); ALKALINE PHOSPHATASE 70 U/L (46-116); ALT/SGPT 35 U/L (7.0-40); AST/SGOT 24 U/L (<34); BILIRUBIN,TOTAL 0.3 MG/DL (0.3-1.2); BLOOD UREA NITROGEN 16 MG/DL (9-23); CALCIUM LEVEL 6.8 MG/DL (8.3-10.6); CARBON DIOXIDE LEVEL 26 MMOL/L (20-31); CHLORIDE LEVEL 108 MMOL/L (98-107); CREATININE FOR GFR 0.83 MG/DL (0.70-1.30); GLOMERULAR FILTRATION RATE > 60.0 (>49); GLUCOSE, FASTING 265 MG/DL (74-106); MAGNESIUM LEVEL 1.7 MG/DL (1.8-2.4); POTASSIUM SERUM 4.5 MMOL/L (3.5-5.1); SODIUM LEVEL 141 MMOL/L (136-145); TOTAL PROTEIN 6.7 G/DL (5.7-8.2)
[2024-01-28] MEDS: ASPIRIN 81MG ENTERIC TABLET PO SCH (09:19)
[2024-01-28] MEDS: PANTOPRAZOLE 40MG TAB (PROTONIX) PO SCH (09:19)
[2024-01-28] MEDS: LEVEMIR (INSULIN DETEMIR) 1 UNITS/0.01ML SC SCH (09:19)
[2024-01-28] MEDS: FORMOTEROL FUMARATE 20 MCG/2 ML INHALATION SOLUTION (PERFOROMIST) INH SCH (11:35)
[2024-01-28] MEDS: GLYCOPYRROLATE INJ 0.2 MG/ML 2 ML VIAL NEB SCH (11:35)
[2024-01-28 13:12] LABS: VENOUS BASE EXCESS -7.9 (-2.0-2.0); VENOUS HCO3 19.4 MMOL/L (23.0-27.0); VENOUS O2 SATURATION 95.7 % (60.0-80.0); VENOUS PARTIAL PRESSURE CO2 46.5 mmHg (38.0-50.0); VENOUS PH 7.239 UNITS (7.330-7.430); VENOUS STANDARD HCO3 18.1 MMOL/L; VENOUS TOTAL CO2 20.9 MMOL/L (24.0-28.0)
[2024-01-28] MEDS: MAG SULF 1GM/100ML (MAG RUN) 1 GM in IV 1 EA IV ONE (14:16)
[2024-01-28] MEDS: REMDESIVIR 200 MG in NS 250 ML IV ONE (17:44)
[2024-01-28] MEDS: cefTRIAXone SOD 1 GM in D5W MINI-BAG PLUS 50 ML IV SCH (21:40)
[2024-01-29] VITALS (43 sets, daily range): BP systolic 121–165; BP diastolic 58–94; TEMP 96.4–98.4; O2SAT 92–98
[2024-01-29 08:05] LABS: HEMATOCRIT 42.5 % (42.0-52.0); HEMOGLOBIN 14.1 g/dl (13.5-17.5); MEAN CORPUSCULAR HEMOGLOBIN 31.5 pg (27.0-33.0); MEAN CORPUSCULAR HGB CONC 33.2 g/dl (32.0-36.5); MEAN CORPUSCULAR VOLUME 95.1 fl (80.0-96.0); PLATELET COUNT, AUTOMATED 124 10^3/uL (150-450); RED BLOOD COUNT 4.47 10^6/uL (4.30-6.10); WHITE BLOOD COUNT 13.9 10^3/uL (4.0-10.0)
[2024-01-29 08:36] LABS: BLOOD UREA NITROGEN 20 MG/DL (9-23); CALCIUM LEVEL 7.3 MG/DL (8.3-10.6); CARBON DIOXIDE LEVEL 28 MMOL/L (20-31); CHLORIDE LEVEL 108 MMOL/L (98-107); CREATININE FOR GFR 0.85 MG/DL (0.70-1.30); GLOMERULAR FILTRATION RATE > 60.0 (>49); GLUCOSE, FASTING 243 MG/DL (74-106); POTASSIUM SERUM 4.2 MMOL/L (3.5-5.1); SODIUM LEVEL 139 MMOL/L (136-145)
[2024-01-29] MEDS: PANTOPRAZOLE 40MG VIAL IV SCH (09:15)
[2024-01-29] MEDS ORDERED: LIDOCAINE 1% MDV 20ML VIAL As Ordered ONE (13:41)
[2024-01-29] MEDS: REMDESIVIR 100 MG in NS 250 ML IV SCH (17:46)
[2024-01-29] MEDS ORDERED: AZITHROMYCIN 250MG TABLET PO SCH (21:00)
[2024-01-30] VITALS (20 sets, daily range): BP systolic 115–150; BP diastolic 60–87; TEMP 96.8–97.4; O2SAT 92–98
[2024-01-30] MEDS: IPRATROPIUM 0.5MG/ALBUTEROL 2.5MG INH SOL UD 3ML (DUONEB) NEB PRN (01:59)
[2024-01-30 05:07] LABS: HEMATOCRIT 42.4 % (42.0-52.0); HEMOGLOBIN 13.9 g/dl (13.5-17.5); MEAN CORPUSCULAR HEMOGLOBIN 31.4 pg (27.0-33.0); MEAN CORPUSCULAR HGB CONC 32.8 g/dl (32.0-36.5); MEAN CORPUSCULAR VOLUME 95.7 fl (80.0-96.0); PLATELET COUNT, AUTOMATED 130 10^3/uL (150-450); RED BLOOD COUNT 4.43 10^6/uL (4.30-6.10); WHITE BLOOD COUNT 10.6 10^3/uL (4.0-10.0)
[2024-01-30 06:26] LABS: ALBUMIN 2.7 G/DL (3.2-5.2); BLOOD UREA NITROGEN 21 MG/DL (9-23); CALCIUM LEVEL 7.8 MG/DL (8.3-10.6); CARBON DIOXIDE LEVEL 29 MMOL/L (20-31); CHLORIDE LEVEL 109 MMOL/L (98-107); CREATININE FOR GFR 0.76 MG/DL (0.70-1.30); GLOMERULAR FILTRATION RATE > 60.0 (>49); GLUCOSE, FASTING 217 MG/DL (74-106); PHOSPHORUS LEVEL 2.4 MG/DL (2.4-5.1); POTASSIUM SERUM 4.3 MMOL/L (3.5-5.1); SODIUM LEVEL 142 MMOL/L (136-145)
[2024-01-30] MEDS: ASPIRIN 81MG CHEW TABLET PO SCH (08:55)
[2024-01-30] MEDS: methylPREDNISolone 40MG 1ML VIAL IV SCH (20:40)
[2024-01-31] VITALS (16 sets, daily range): BP systolic 128–175; BP diastolic 55–92; TEMP 96.7–97.5; O2SAT 92–98
[2024-01-31] MEDS ORDERED: hydrALAZINE 20MG/ML 1ML VIAL IV PRN (18:30)
[2024-02-01 18:13] LABS: URINE STREP PNEUMONIAE ANTIGEN NOT DETECTED (NOT DETECT)
== END 2024-01-31 21:35 | disposition short-term general hospital (02) | DRG 404 ==
LOC: M ED 17:46 → M ED INP 23:17 → M MS4PR 01-28 08:27 → M ICU 01-28 11:12
PROVIDERS: ADMIT Preventive Medicine Undersea and Hyperbaric Medicine; ATTEND Internal Medicine
PROC: 0GBG3ZZ Excision of Left Thyroid Gland Lobe, Percutaneous Approach (ICD-10-PCS; principal; 2024-01-29 13:55)
DX: C73 Malignant neoplasm of thyroid gland (principal); J96.01 Acute respiratory failure with hypoxia; E87.20 Acidosis, unspecified; I24.89 Other forms of acute ischemic heart disease; E11.51 Type 2 diabetes mellitus with diabetic peripheral angiopathy without gangrene; E83.42 Hypomagnesemia; J96.02 Acute respiratory failure with hypercapnia; E83.51 Hypocalcemia; J44.9 Chronic obstructive pulmonary disease, unspecified; Z87.891 Personal history of nicotine dependence; Z86.16 Personal history of COVID-19; Z86.718 Personal history of other venous thrombosis and embolism

== ENCOUNTER 2024-02-19 18:00 | Emergency (ER) | payer MEDICARE, BC ==
[~2024-02-19] VITALS: Ht 182.9 cm; Wt 119.9 kg
[2024-02-19 18:24] VITALS: TEMP 98.4
[2024-02-19] MEDS ORDERED: METH4TAB8 (18:44)
[2024-02-19] MEDS ORDERED: METF500T13 (18:44)
[2024-02-19] MEDS ORDERED: PANT40TA29 (18:44)
[2024-02-19] MEDS ORDERED: INSU100V19 (18:44)
[2024-02-19] MEDS ORDERED: ECOT81TA5 PO (18:45)
[2024-02-19 20:02] LABS: BASO % 0.3 % (0.0-1.0); EOS # 0.1 10^3/uL (0.0-0.5); EOS % 1.6 % (0.0-3.0); HEMATOCRIT 39.3 % (42.0-52.0); HEMOGLOBIN 13.1 g/dl (13.5-17.5); LYMPH # 1.4 10^3/uL (1.5-5.0); LYMPH % 18.5 % (24.0-44.0); MEAN CORPUSCULAR HEMOGLOBIN 31.5 pg (27.0-33.0); MEAN CORPUSCULAR HGB CONC 33.3 g/dl (32.0-36.5); MEAN CORPUSCULAR VOLUME 94.5 fl (80.0-96.0); MONO # 0.6 10^3/uL (0.0-0.8); MONO % 7.6 % (2.0-8.0); NEUTROPHILS # 5.3 10^3/uL (1.5-8.5); PLATELET COUNT, AUTOMATED 136 10^3/uL (150-450); RED BLOOD COUNT 4.16 10^6/uL (4.30-6.10); WHITE BLOOD COUNT 7.6 10^3/uL (4.0-10.0)
[2024-02-19 20:13] LABS: INR 1.11; PARTIAL THROMBOPLASTIN TIME 25.2 SECONDS (24.8-34.2)
[2024-02-19 20:26] LABS: BLOOD UREA NITROGEN 14 MG/DL (9-23); CARBON DIOXIDE LEVEL 32 MMOL/L (20-31); CHLORIDE LEVEL 107 MMOL/L (98-107); CREATININE FOR GFR 0.68 MG/DL (0.70-1.30); GLOMERULAR FILTRATION RATE > 60.0 (>49); GLUCOSE, FASTING 93 MG/DL (74-106); POTASSIUM SERUM 3.6 MMOL/L (3.5-5.1); SODIUM LEVEL 143 MMOL/L (136-145)
[2024-02-20 00:27] VITALS: BP 109/56; O2SAT 97
== END 2024-02-20 00:35 | disposition short-term general hospital (02) ==
LOC: M ED 18:00 → EDBD 18:00 → M ED 02-20 00:35
DX: R06.00 Dyspnea, unspecified (principal); J95.03 Malfunction of tracheostomy stoma; I25.10 Atherosclerotic heart disease of native coronary artery without angina pectoris; E11.9 Type 2 diabetes mellitus without complications; K21.9 Gastro-esophageal reflux disease without esophagitis; Z79.82 Long term (current) use of aspirin; Z79.4 Long term (current) use of insulin; Z79.899 Other long term (current) drug therapy

== ENCOUNTER 2024-03-23 11:56 | Emergency (ER) | payer BC, MEDICARE ==
[~2024-03-23] VITALS: Ht 182.9 cm; Wt 119.2 kg
[~2024-03-23 11:56] MED LIST changes: +ECOT81TA5 PO; +INSU100V19; +METF500T13; +METH4TAB8; +PANT40TA29
[2024-03-23 16:15] VITALS: BP 128/74; TEMP 98.2; O2SAT 99
== END 2024-03-23 16:15 | disposition short-term general hospital (02) ==
LOC: M ED 11:56 → EDBD 11:56 → M ED 16:15
DX: J95.03 Malfunction of tracheostomy stoma (principal); E11.9 Type 2 diabetes mellitus without complications; K21.9 Gastro-esophageal reflux disease without esophagitis; Z79.82 Long term (current) use of aspirin; Z79.4 Long term (current) use of insulin; Z79.899 Other long term (current) drug therapy

== ENCOUNTER 2024-04-06 03:30 | Emergency (ER) | payer BC, MEDICARE ==
[~2024-04-06] VITALS: Ht 182.9 cm; Wt 113.6 kg
[2024-04-06 03:49] VITALS: BP 128/85; TEMP 97.3
[2024-04-06 04:00] LABS: BASO # 0.1 10^3/uL (0.0-0.2); BASO % 0.8 % (0.0-1.0); EOS # 0.4 10^3/uL (0.0-0.5); EOS % 4.7 % (0.0-3.0); HEMATOCRIT 40.4 % (42.0-52.0); HEMOGLOBIN 12.8 g/dl (13.5-17.5); LYMPH # 1.2 10^3/uL (1.5-5.0); LYMPH % 13.5 % (24.0-44.0); MEAN CORPUSCULAR HEMOGLOBIN 30.4 pg (27.0-33.0); MEAN CORPUSCULAR HGB CONC 31.7 g/dl (32.0-36.5); MONO # 0.5 10^3/uL (0.0-0.8); MONO % 6.3 % (2.0-8.0); NEUTROPHILS # 6.3 10^3/uL (1.5-8.5); NEUTROPHILS % 74.1 % (36.0-66.0); PLATELET COUNT, AUTOMATED 274 10^3/uL (150-450); RED BLOOD COUNT 4.21 10^6/uL (4.30-6.10); WHITE BLOOD COUNT 8.5 10^3/uL (4.0-10.0)
[2024-04-06 04:21] LABS: PARTIAL THROMBOPLASTIN TIME 31.4 SECONDS (24.8-34.2); PROTHROMBIN TIME 13.5 SECONDS (12.5-14.5)
[2024-04-06 04:34] LABS: PROCALCITONIN 0.12 ng/ml
[2024-04-06 04:35] LABS: BLOOD UREA NITROGEN 19 MG/DL (9-23); CALCIUM LEVEL 9.3 MG/DL (8.3-10.6); CARBON DIOXIDE LEVEL 30 MMOL/L (20-31); CHLORIDE LEVEL 105 MMOL/L (98-107); CREATININE FOR GFR 0.84 MG/DL (0.70-1.30); GLOMERULAR FILTRATION RATE > 60.0 (>49); GLUCOSE, FASTING 162 MG/DL (74-106); SODIUM LEVEL 139 MMOL/L (136-145)
[2024-04-06] MEDS ORDERED: ISOVUE-370 76% 100ML VIAL As Ordered ONE (04:54)
[2024-04-06 07:04] LABS: BASO # 0.1 10^3/uL (0.0-0.2); BASO % 0.8 % (0.0-1.0); EOS # 0.2 10^3/uL (0.0-0.5); EOS % 2.4 % (0.0-3.0); HEMATOCRIT 38.4 % (42.0-52.0); HEMOGLOBIN 12.3 g/dl (13.5-17.5); LYMPH # 1.1 10^3/uL (1.5-5.0); MEAN CORPUSCULAR HEMOGLOBIN 30.5 pg (27.0-33.0); MEAN CORPUSCULAR VOLUME 95.3 fl (80.0-96.0); MONO # 0.5 10^3/uL (0.0-0.8); MONO % 5.4 % (2.0-8.0); NEUTROPHILS # 7.2 10^3/uL (1.5-8.5); NEUTROPHILS % 78.9 % (36.0-66.0); PLATELET COUNT, AUTOMATED 281 10^3/uL (150-450); RED BLOOD COUNT 4.03 10^6/uL (4.30-6.10); WHITE BLOOD COUNT 9.1 10^3/uL (4.0-10.0)
[2024-04-06] MEDS: TRANEXAMIC ACID 100 MG/ML 10ML VIAL NEB ONE (08:15)
[2024-04-06 08:30] VITALS: O2SAT 100
== END 2024-04-06 08:50 | disposition home or self-care (01) ==
LOC: EDBD 03:30 → M ED 03:30
DX: J95.09 Other tracheostomy complication (principal); R06.02 Shortness of breath; E11.9 Type 2 diabetes mellitus without complications; Z79.4 Long term (current) use of insulin; K21.9 Gastro-esophageal reflux disease without esophagitis; C73 Malignant neoplasm of thyroid gland
CPT/HCPCS: 70491; 71045; 80048; 83735; 84145; 85025; 85610; 85730; 86850; 86900; 86901; 87040; 87486; 87581; 87633; 87798; 99284; Q9967

== ENCOUNTER 2024-04-26 08:08 | Emergency (ER) | payer BC, MEDICARE ==
[~2024-04-26] VITALS: Ht 182.9 cm; Wt 117.8 kg
[2024-04-26] MEDS ORDERED: TAFI75CA2 PO (08:30)
[2024-04-26] MEDS ORDERED: ONDA-84 (08:30)
[2024-04-26 09:30] LABS: BASO # 0.1 10^3/uL (0.0-0.2); BASO % 0.8 % (0.0-1.0); EOS # 0.2 10^3/uL (0.0-0.5); HEMATOCRIT 41.3 % (42.0-52.0); HEMOGLOBIN 13.4 g/dl (13.5-17.5); LYMPH # 1.5 10^3/uL (1.5-5.0); LYMPH % 19.6 % (24.0-44.0); MEAN CORPUSCULAR HEMOGLOBIN 30.7 pg (27.0-33.0); MEAN CORPUSCULAR HGB CONC 32.4 g/dl (32.0-36.5); MEAN CORPUSCULAR VOLUME 94.5 fl (80.0-96.0); MONO # 0.3 10^3/uL (0.0-0.8); MONO % 4.3 % (2.0-8.0); NEUTROPHILS # 5.5 10^3/uL (1.5-8.5); NEUTROPHILS % 72.8 % (36.0-66.0); PLATELET COUNT, AUTOMATED 251 10^3/uL (150-450); RED BLOOD COUNT 4.37 10^6/uL (4.30-6.10); WHITE BLOOD COUNT 7.5 10^3/uL (4.0-10.0)
[2024-04-26] MEDS ORDERED: ISOVUE-370 76% 100ML VIAL As Ordered ONE (10:07)
[2024-04-26 12:00] VITALS: BP 150/88; TEMP 97.6; O2SAT 96
[2024-04-27] MEDS ORDERED: MEKI2TAB2 (15:21)
[2024-04-27] MEDS ORDERED: FURO20TA2 (15:21)
== END 2024-04-26 12:15 | disposition home or self-care (01) ==
LOC: M ED 08:08 → EDBD 08:08 → M ED 12:15
DX: J95.00 Unspecified tracheostomy complication (principal); E11.9 Type 2 diabetes mellitus without complications; Z85.850 Personal history of malignant neoplasm of thyroid; G47.30 Sleep apnea, unspecified; Z87.891 Personal history of nicotine dependence; Z79.82 Long term (current) use of aspirin; Z79.84 Long term (current) use of oral hypoglycemic drugs
CPT/HCPCS: 70491; 71045; 80047; 85025; 93041; 99285; Q9967

== ENCOUNTER → 2024-07-08 | Outpatient (CLI) | payer BC, MEDICARE ==
[~2024-07-08] MED LIST changes: +FURO20TA2; +ISOVUE-370 76% 100ML VIAL ONE; +MEKI2TAB2; +ONDA-84; +TAFI75CA2 PO
== END ==
LOC: M PLAIMG 08:51
PROVIDERS: ATTEND Specialist
DX: C73 Malignant neoplasm of thyroid gland (principal); Z93.0 Tracheostomy status
CPT/HCPCS: 70491; 71260; Q9967

== ENCOUNTER → 2025-02-02 | Outpatient (CLI) | payer BC, MEDICARE ==
[~2025-02-02] MED LIST changes: +ISOVUE-370 76% 100 ML VIAL As Ordered ONE; -ISOVUE-370 76% 100ML VIAL ONE; +LEVO25TA5 PO; +LEVO50TA5 PO
== END ==
LOC: M RAD 14:33
PROVIDERS: ATTEND Nurse Practitioner Adult Health
DX: C73 Malignant neoplasm of thyroid gland (principal); Z93.0 Tracheostomy status; M47.812 Spondylosis without myelopathy or radiculopathy, cervical region; Z98.890 Other specified postprocedural states
CPT/HCPCS: 70491; Q9967

== ENCOUNTER → 2025-02-04 | Outpatient (REF) | payer BC, MEDICARE ==
[~2025-02-04] MED LIST changes: -ISOVUE-370 76% 100 ML VIAL As Ordered ONE
== END ==
LOC: M LAB REF 13:40
PROVIDERS: ATTEND Internal Medicine
DX: L02.11 Cutaneous abscess of neck (principal)